=== PATIENT | female | born 1980 | race Caucasian/White ===

== ENCOUNTER 2022-07-03 07:51 | Day surgery (SDC) | payer BC, OTHER ==
[~2022-07-03 07:51] MED LIST: Acetaminophen 500 MG Tab PO ONE; Bupivacaine 0.5% 50 ML MDV ONE; Lidocaine 1% with EPINEPHrine 1:100,000 50 ML MDV ONE; Midazolam 1 MG/ML 2 ML SDV ONE; Propofol 200 MG/20 ML SDV ONE; fentaNYL 100 MCG/2 ML SDV ONE
[2022-07-03] MEDS ORDERED: Lidocaine 1% 20 ML MDV INJECT ONE (08:01)
[2022-07-03] MEDS ORDERED: Lidocaine 1% with EPINEPHrine 1:100,000 10 ML MDV INJECT SCH (08:15)
[2022-07-03] MEDS ORDERED: Dextrose 5%-Lactated Ringers 1,000 ML IV SCH (08:45)
[2022-07-03] MEDS ORDERED: ceFAZolin 2 GM in Sodium Chloride 0.9% 50 ML IV ONE (09:15)
[2022-07-03] MEDS ORDERED: Propofol 200 MG/20 ML SDV ONE (10:44)
[2022-07-03] MEDS ORDERED: Linezolid 600 MG/300 ML Premix Bag IRR ONE (11:47)
== END 2022-07-03 13:34 | disposition home or self-care (01) ==
LOC: JP.SDS 07:51
PROVIDERS: ATTEND Surgery
DX: D24.1 Benign neoplasm of right breast (principal); N60.21 Fibroadenosis of right breast; N64.89 Other specified disorders of breast; N64.1 Fat necrosis of breast; I10 Essential (primary) hypertension; J30.2 Other seasonal allergic rhinitis; B07.0 Plantar wart; K21.9 Gastro-esophageal reflux disease without esophagitis; Z79.899 Other long term (current) drug therapy; Z88.8 Allergy status to other drugs, medicaments and biological substances; Z91.048 Other nonmedicinal substance allergy status
CPT/HCPCS: 19125; 19281; 76000; 76098; 77065; 81025; A9270; J0690; J2020; J2250; J2704; J3010; J3490; J7121; 88307